=== PATIENT | female | born 1950 | race Caucasian/White ===

== ENCOUNTER 2017-03-22 09:38 | Emergency (ER) | payer OTHER ==
[~2017-03-22] VITALS: Ht 157.5 cm; Wt 113.4 kg
[~2017-03-22 09:38] MED LIST: ASPIR 8181 MG PO; ASPIRIN EC81 M1 PO; ATENOLOL 100MG100 MG PO; BENZONATATE100 MG PO; BIO CLEANSE PO; CENTRUM SILVER1 EAC4 PO; CHLORTHALIDONE25 MG PO; CLARITIN10 MG PO; COLACE100 MG PO; COREG6.25 MG PO; LIPITOR 20 MG T20 M1 PO; LIPITOR10 MG PO; LISINOPRIL20 MG PO; LISINOPRIL40 MG PO; MUCINEX TA600 MG/TA2 PO; NORVASC10 MG PO; NORVASC5 MG PO; PEPCID20 MG PO; PLAVIX 75 MG TA75 M1 PO; PREDNISONE 10 M10 MG PO; PREDNISONE 20 M20 MG PO; PRILOSEC 20 MG20 MG PO; PROAIR HFA8.5 GM INH; PROBIOTIC1 EAC3 PO; PROTONIX40 M1 PO; SYSTANE 0.3-0.1 EACH OPHTHALMIC; TYLENOL325 MG PO; XANAX 0.25 MG0.25 MG PO; ZESTORETIC 20-1 EAC1 PO; ZPAK PO
[2017-03-22 10:43] LABS: BASOPHILS 1.2 % (0.0-2.0); EOSINOPHILS 5.4 % (0.0-3.0); HEMATOCRIT 45.3 % (37.0-47.0); HEMOGLOBIN 15.3 gm/dL (12.0-15.0); LYMPHOCYTES 32.7 % (24.0-44.0); MCH 28.6 pg (26.0-34.0); MCHC 33.9 g/dL (28.0-37.0); MCV 84.4 fL (80.0-100.0); MONOCYTES 8.5 % (1.0-8.0); PLATELET COUNT 278 thou/uL (150-400); POLYS 52.2 % (36.0-66.0); RBC 5.36 mil/uL (4.20-5.00); RDW 13.9 % (10.5-14.5); WBC 9.5 thou/uL (4.0-11.0)
[2017-03-22 10:44] LABS: URINE BILIRUBIN NEGATIVE (Negative); URINE BLOOD NEGATIVE (Negative); URINE CLARITY CLEAR; URINE COLOR YELLOW; URINE GLUCOSE-RANDOM* NEGATIVE (Negative); URINE KETONES NEGATIVE (Negative); URINE LEUKOCYTES 1+ (Negative); URINE NITRITE NEGATIVE (Negative); URINE PROTEIN (DIPSTICK) NEGATIVE (Negative); URINE SPECIFIC GRAVITY <= 1.005 (1.005-1.035); URINE UROBILINOGEN 0.2 E.U./dl (0.2-1.0)
[2017-03-22 10:51] LABS: ANION GAP 7 mmol/L (7-16); BUN 19 mg/dL (7-18); CALCIUM 9.2 mg/dL (8.5-10.1); CHLORIDE 99 mmol/L (98-107); CO2 29 mmol/L (21-32); GLUCOSE 132 mg/dL (74-106); POTASSIUM 4.5 mmol/L (3.5-5.1); SODIUM 135 mmol/L (136-145)
[2017-03-22 10:53] LABS: CASTS None Seen /LPF (None Seen); SQUAMOUS 0-3 Few /LPF (0-3); URINE WBC 6-15 Few /HPF (0-5)
[2017-03-22 10:54] LABS: BACTERIA None Seen /HPF (None Seen); CRYSTALS None Seen /LPF (None Seen); URINE RBC None Seen /HPF (0-2)
[2017-03-22 10:55] LABS: MUCUS None Seen strn/LPF (None Seen)
[2017-03-22 11:00] LABS: ALBUMIN 3.5 g/dL (3.4-5.0); SGOT 35 U/L (15-37); SGPT 51 U/L (30-65); TOTAL BILIRUBIN 0.5 mg/dL (<0.1-1.0); TOTAL PROTEIN 7.2 g/dL (6.4-8.2); TROPONIN-I < 0.04 ng/mL (<0.06)
[2017-03-22] MEDS ORDERED: MACROBID 100 M100 M1 PO (12:08)
[2017-03-22] MEDS ORDERED: PREDNISONE 20 M20 MG PO (12:08)
[2017-03-22] MEDS ORDERED: VENTOLIN HFA 1818 GM INH ×3 (12:08→12:14)
[2017-03-22] MEDS ORDERED: ONDANSETRON HCL4 M2 PO (12:08)
[2017-03-22 13:49] VITALS: BP 132/71
== END 2017-03-22 13:51 | disposition home or self-care (01) ==
LOC: ER 09:38
PROVIDERS: Physician Assistant
DX: N39.0 Urinary tract infection, site not specified (principal); J20.8 Acute bronchitis due to other specified organisms; I10 Essential (primary) hypertension; E78.00 Pure hypercholesterolemia, unspecified; K21.9 Gastro-esophageal reflux disease without esophagitis; F41.9 Anxiety disorder, unspecified; Z86.73 Personal history of transient ischemic attack (TIA), and cerebral infarction without residual deficits; Z88.1 Allergy status to other antibiotic agents; Z88.0 Allergy status to penicillin; Z88.8 Allergy status to other drugs, medicaments and biological substances; Z87.891 Personal history of nicotine dependence

== ENCOUNTER 2017-05-30 11:22 | Inpatient (IN) | payer OTHER ==
[~2017-05-30] VITALS: Ht 157.5 cm; Wt 112.6 kg
--- NOTE | ~2017-05-30 | 2DMMODE ---
[facility] [address] [place] [address] 2 D/M-MODE ECHOCARDIOGRAM Name: DALJIT ARRIETA Room #: 201-P ADM IN M.R.#: [id number] Admission: 05/30/17 Attend Phys: Zechariah Vidal MD Discharge: Date of : 46 Date of Service: 06/02/17 1542 Report #: [id number] THIS REPORT FOR: //name// ADDENDUM APPROVED REPORT Study performed: 06/02/2017 13:28:14 EXAM: Comprehensive 2D, Doppler, and color-flow Echocardiogram Patient Location: Bedside Room #: 201 Status: routine BSA: 2.14 HR: 66 bpm BP: 140/59 mmHg Other Information Study Quality: Fair Indications Dyspnea CAD Hypertension/HDD 2D Dimensions LVOT Diam: 18.36 (18-24mm) Volumes Left Atrial Volume (Systole) Single Plane 4CH: 62.49 mL Single Plane 2CH: 42.80 mL LA ESV Index: 28.00 mL/m2 Aortic Valve AoV Peak Jean-Paul.: 3.05 m/s AO Peak Gr.: 37.28 mmHg LVOT Max P.13 mmHg AO Mean Gr.: 24.54 mmHg LVOT Mean P.13 mmHg AO V2 Mean: 2.36 m/s LVOT Max V: 0.98 m/s AO V2 VTI: 84.87 cm LVOT Mean V: 0.69 m/s NIKIA (VTI): 0.88 cm2 LVOT V1 VTI: 28.15 cm NIKIA Vmax: 0.85 cm2 SV (LVOT): 74.47 mL Mitral Valve E/A Ratio: 1.4 MV Decel. Time: 190.01 ms MV E Max Jean-Paul.: 1.35 m/s [facility] [place] [address] 2 D/M-MODE ECHOCARDIOGRAM Name: DALJIT ARRIETA EMMA Room #: 201-P [facility] IN M.R.#: [id number] Admission: 05/30/17 Attend Phys: Zechariah Vidal MD Discharge: Date of : 46 Date of Service: 06/02/17 1542 Report #: [id number] MV A Jean-Paul.: 0.97 m/s MV PHT: 55.10 ms IVRT: 59.98 ms Pulmonary Valve PV Peak Jean-Paul.: 1.27 m/s PV Peak Gr.: 6.44 mmHg Pulmonary Vein P Vein S: 0.87 m/s P Vein A: 0.21 m/s P Vein D: 0.79 m/s P Vein A Dur.: 92.3 msec P Vein S/D Ratio: 1.10 Tricuspid Valve TR Peak Jean-Paul.: 3.16 m/s TR Peak Gr.: 40.05 mmHg PA Pressure: 40.00 mmHg Left Ventricle The left ventricle is normal size. poor endocardial definition, possible inferior hypokinesis Mild concentric left ventricular hypertrophy. The left ventricular systolic function is normal. The left ventricular ejection fraction is within the normal range. LVEF is 50-55% Transmitral Doppler flow pattern suggests impaired LV relaxation. Right Ventricle The right ventricle is normal size. The right ventricular systolic function is normal. Atria Left atrium is at the upper limits of normal. The right atrium size is normal. Aortic Valve Aortic valve is calcified. Trace aortic regurgitation. Moderate aortic stenosis Mitral Valve The mitral valve is normal in structure. Mild mitral regurgitation. No evidence of mitral valve stenosis. Tricuspid Valve The tricuspid valve is normal in structure. There is mild tricuspid regurgitation. Estimated PAP 40 mmHg plus the right atrial pressure. There is moderate pulmonary hypertension. [address] [address] 2 D/M-MODE ECHOCARDIOGRAM Name: DALJIT ARRIETA Room #: 201-P [facility] IN ..#: [id number] Admission: 05/30/17 Attend Phys: Zechariah Vidal MD Discharge: Date of : 46 Date of Service: 06/02/17 1542 Report #: [id number] Pulmonic Valve The pulmonary valve is normal in structure. There is no pulmonic valvular regurgitation. Great Vessels The aortic root is normal in size. IVC is not well visualized. Pericardium There is no pericardial effusion. <Conclusion> LVEF is 50-55% poor endocardial definition, possible inferior hypokinesis The aortic valve is sclerotic Moderate aortic stenosis Transmitral Doppler flow pattern suggests impaired LV relaxation. <ELECTRONICALLY SIGNED> By: Walter Izquierdo MD, FACC 06/02/17 154 154 154 Walter Izquierdo MD, FACC /INF
--- NOTE | ~2017-05-30 | HC ---
[facility] [place] [address] CONSULTATION Name: DALJIT ARRIETA Room #: 201-P ADM IN M.R.#: [id number] Admission: 05/30/17 Attend Phys: Zechariah Vidal MD Discharge: Date of : 46 Report #: [id number] THIS REPORT FOR: //name// CC: Juan Ramon Vidal INFECTIOUS DISEASE CONSULTATION REASON FOR CONSULTATION: I was asked to evaluate concerning bacteremia in the setting of pneumonia and influenza. HISTORY OF PRESENT ILLNESS: The patient is a 67-year-old who presents to the Emergency Room on 05/30/2017 with shortness of breath and cough that had progressed over 1 week time period. She has had myalgias, arthralgias, chills and cough productive of purulent sputum. No hemoptysis. No pleuritic chest pain. No prior history of pneumonia. Does have a history of coronary artery disease, status post coronary bypass grafting. No travel. Lives alone. No animal exposure. PAST MEDICAL HISTORY: Coronary artery disease, hypertension, coronary bypass grafting, peripheral vascular disease, left carotid endarterectomy, hyperlipidemia, TIA, IA, gastroesophageal reflux, dentures, anxiety, back pain, hyperlipidemia, cataract surgery. ALLERGIES: AMOXICILLIN WITH ANAPHYLACTIC SHOCK, LEVAQUIN, HYDROCODONE. MEDICATIONS: As noted on her MAR including aspirin, Coreg, Norvasc, Zestoretic, Crestor, multivitamin, Mucinex. FAMILY HISTORY: Noncontributory. SOCIAL HISTORY: She is a smoker of cigarettes in the past, minimal alcohol intake. REVIEW OF SYSTEMS: Denies any rash, arthritis, GI or complaints. PHYSICAL EXAMINATION: VITAL SIGNS: Afebrile and hemodynamically stable. GENERAL: Alert and cooperative on 2 liters of oxygen per nasal cannula. Moderate obesity. SKIN: Unremarkable. HEENT: Unremarkable with dentures. NECK: Supple, no adenopathy. LUNGS: Coarse breath sounds posterior mid to lower chest bilaterally. No consolidation, no rub. HEART: Regular without murmur. ABDOMEN: Soft, nontender, no hepatosplenomegaly or mass. [facility] [address] [place] [address] CONSULTATION Name: DALJIT ARRIETA Room #: 201-P [facility] IN M.R.#: [id number] Admission: 05/30/17 Attend Phys: Zechariah Vidal MD Discharge: Date of : 46 Report #: [id number] EXTREMITIES: Unremarkable. LABORATORY STUDIES: Blood cultures from 05/30/2017, 1 of 2 showing diphtheroids. Sputum culture, normal riccardo. Urine for legionella and strep pneumonia antigen negative. Repeat blood cultures on 06/02/2017 negative to date. Lower extremity venous Doppler negative for DVT. Chest x-ray, more consistent with edema with bilateral infiltrates, more prominent in the perihilar region. CT scan of the chest, no pulmonary embolism with widespread patchy nodular and ground glass pulmonary opacities consistent with multifocal pneumonia. Sodium 136, potassium 4.8, bicarbonate 30, creatinine 1. Liver function test normal with alkaline phosphatase of 118. BNP 2683. Hemoglobin 13.3, WBC 23.6, platelet count 295,000. Differential: 77% neutrophils, 6% bands, 6% atypical lymphocytes. MRSA screen negative. Hemoglobin A1c 6.3. Nasal swab positive for influenza B. IMPRESSION: 1. A 67-year-old with underlying coronary artery disease, presents with influenza B and bilateral pulmonary infiltrates. No secondary bacterial organisms have been identified. Her sputum culture shows normal riccardo. 2. Blood culture with diphtheroids, most consistent with contamination. No treatment necessary for this. 3. Leukocytosis, likely related to her corticosteroids. RECOMMENDATIONS: Continue with Tamiflu as ordered. We will continue with ceftriaxone for another 24 hours. Anticipate switching to oral antibiotic therapy with continued improvement tomorrow. <ELECTRONICALLY SIGNED> By: Jeferson Chamberlain MD 06/03/17 1949 1030 1335 Jeferson Chamberlain MD /nt
--- NOTE | ~2017-05-30 | EKG ---
[address] [address] ELECTROCARDIOGRAM REPORT Name: MEENAKSHIDALJIT EMMA Room #: 201-P ADM IN M.R.#: [id number] Admission: 05/30/17 Attend Phys: Zechariah Vidal MD Discharge: Date of : 46 Report #: [id number] THIS REPORT FOR: //name// [facility] Test Date: 2017-06-04 Test Time: 13:37:12 Pat Name: DALJIT ARRIETA Department: Room: 201 P Gender: F Junior Software Engineer: Peter FOLEY : 1950 Requested By: Zechariah Vidal Order Number: [id number] : John Burgess Measurements Intervals [place] Rate: 78 P: 70 AK: 157 QRS: 39 QRSD: 101 T: 161 QT: 376 QTc: 429 Interpretive Statements Sinus rhythm Abnormal inferior Q waves Minimal ST elevation, anterior leads Compared to ECG 05/30/2017 11:44:04 Electronically Signed On 06-04-2017 14:05:47 CDT by John Burgess [email or web address] <ELECTRONICALLY SIGNED> By: John Burgess MD 06/04/17 1407 1337 1337 John Burgess MD /EPI
--- NOTE | ~2017-05-30 | EKG ---
[address] [address] ELECTROCARDIOGRAM REPORT Name: DALJIT ARRIETA Room #: 201-P ADM IN M.R.#: [id number] Admission: 05/30/17 Attend Phys: Zechariah Vidal MD Discharge: Date of : 46 Report #: [id number] THIS REPORT FOR: //name// [facility] Test Date: 2017-06-06 Test Time: 12:36:06 Pat Name: DALJIT ARRIETA Department: Room: 201 P Gender: F Laborer Heading: JENNIFER : 1950 Requested By: Zechariah Vidal Order Number: [id number] MD: John Burgess Measurements Intervals [place] Rate: 55 P: 53 IA: 161 QRS: 29 QRSD: 89 T: 146 QT: 441 QTc: 422 Interpretive Statements Sinus rhythm Minimal ST elevation, anterior leads Compared to ECG 06/04/2017 13:37:12 Early repolarization now present Electronically Signed On 06-06-2017 19:59:03 CDT by John Burgess [email or web address] <ELECTRONICALLY SIGNED> By: John Burgess MD 06/06/171958 123 35 John Burgess MD /ASHLEY
--- NOTE | ~2017-05-30 | HC ---
[facility] [place] [address] CONSULTATION Name: DALJIT ARRIETA Room #: 201-P ADM IN M.R.#: [id number] Admission: 05/30/17 Attend Phys: Zechariah Vidal MD Discharge: Date of : 46 Report #: [id number] THIS REPORT FOR: //name// CC: Juan Ramon Vidal DATE OF SERVICE: 06/04/2017 TYPE OF REPORT: Cardiology consultation. PRIMARY CARE SERVICE: Juan Ramon Moore M.D. HISTORY OF PRESENT ILLNESS: The patient is a 67-year-old single white female who I was asked to see in the hospital today after she complained of chest pain. The patient has a long history of hypertension, smoking and hyperlipidemia. She actually presented back in 2013. She had a long history of epigastric pain. She was actually catheterized at [facility] and was found to have an occluded left iliac artery. 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 She was found to have normal left ventricular function and mild aortic stenosis. The patient had a previous history of left carotid endarterectomy at the [facility] in 1997. In 2005, she underwent stenting of the carotid artery. The patient was admitted to [facility] and underwent quadruple coronary artery bypass surgery by Dr. Adarsh Pan in October 2013. She has actually done well since that time. The patient has been followed by my partner, Dr. Padilla. She was actually admitted here to [facility] last December with chest pain. She was seen at that time by Dr. Izquierdo. Workup included an echocardiogram showed evidence of mild aortic stenosis. 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 She was admitted here to [facility] 5 days ago with a cough, fever and shortness of breath. She is felt to have bronchitis. Today, she is lying in bed. She felt a tightness in her epigastrium. I was asked to see her for further evaluation and treatment. She denies any exertional chest tightness, palpitation, syncope, edema and leg pain. PAST MEDICAL HISTORY: Otherwise significant for cataract surgery, hypertension and hyperlipidemia. MEDICATIONS: Include amlodipine, lisinopril, Crestor and aspirin. ALLERGIES: She has an allergy to PENICILLIN. FAMILY HISTORY: Positive for heart disease. [facility] [address] [place] [address] CONSULTATION Name: DALJIT ARRIETA Room #: [address] [place] [address] [place] ..#: [id number] Admission: 05/30/17 Attend Phys: Zechariah Vidal MD Discharge: Date of : 48 Report #: [id number] SOCIAL HISTORY: She is , lives in [place] by herself. She has a desk job. Quit smoking years ago. No alcohol abuse. REVIEW OF SYSTEMS: She has had a history of TIA. No history of asthma, peptic ulcer disease, liver disease, kidney disease, cancer, psychiatric illness or chronic skin condition. PHYSICAL EXAMINATION: GENERAL: She is overweight, being 5 feet 5 inches and weighing 250 pounds. VITAL SIGNS: Blood pressure of 170/70, pulse 70 and she is afebrile. HEENT: She was anicteric. Conjunctivae pink. Mucous membranes moist. NECK: Veins nondistended. CHEST: No coarse breath sounds. CARDIOVASCULAR: Regular rate and rhythm. Grade 3 systolic ejection murmur. ABDOMEN: Obese, soft and nontender. EXTREMITIES: Had no pitting edema. Dorsalis pedis pulse cannot be palpated. SKIN: Cool and dry. RADIOLOGICAL DATA: Her ECG was done earlier today but unfortunately, it is not in her chart. Her workup, she had portable chest x-ray on admission that showed chronic interstitial prominence and no pneumonia. Chest x-ray done today shows cardiomegaly, otherwise clear lung beverly. Venous duplex scan of her legs done 3 days ago showed no DVT. CT scan of the chest using the PE protocol on admission showed no pulmonary embolus and patchy infiltrates consistent with pneumonia. She had a nuclear stress test done last December that showed a small anterolateral defect likely artifact secondary to breast attenuation. LABORATORY DATA: Her lab work, sodium 139, potassium 5.1, BUN 23 and creatinine 0.9. Liver function studies are normal. Glucose is 211. Liver function studies are normal. Troponin 0.04. White blood cell count 24,000 and hemoglobin 13.9. IMPRESSION AND RECOMMENDATIONS: 1. Epigastric pain. Suspect noncardiac. Recommend no further cardiac workup. I would continue aspirin a day. 2. Hypertension. The patient has been on a calcium noe and angiotensin-converting enzyme inhibitor. I would recommend restarting her beta noe. 3. Hyperlipidemia. The patient is on a statin drug. 4. Previous bilateral carotid endarterectomy, asymptomatic. 5. Peripheral arterial disease. No symptoms of claudication. 6. Morbid obesity. 7. Bronchitis. 8. Aortic stenosis. The patient had a repeat echocardiogram done this week that showed ejection fraction 50%. There was evidence of aortic stenosis with a [facility] [address] [place] [address] CONSULTATION Name: DALJIT ARRIETA Room #: 201-P ADM IN M.R.#: [id number] Admission: 05/30/17 Attend Phys: Zechariah Vidal MD Discharge: Date of : 46 Report #: [id number] peak gradient across the aortic valve of 37 mmHg consistent with at least moderate aortic stenosis. <ELECTRONICALLY SIGNED> By: Juan Ramon Valiente MD, FACC 06/05/17 1219 1808 2109 Juan Ramon Valiente MD, FACC /nt
--- NOTE | ~2017-05-30 | HC ---
[facility] [place] [address] CONSULTATION Name: DALJIT ARRIETA Room #: 201-P [facility] IN M.R.#: [id number] Admission: 05/30/17 Attend Phys: Zechariah Vidal MD Discharge: 06/07/17 Date of : 46 Report #: [id number] THIS REPORT FOR: //name// CC: Juan Ramon Vidal DATE OF SERVICE: 06/01/2017 REASON FOR CONSULTATION: Hypoxemic respiratory failure. IMPRESSION: 1. Hypoxemic respiratory failure. 2. Bilateral pulmonary infiltrates, likely secondary to influenza but bacterial pneumonia may be cause. 3. Leukocytosis. 4. History of tobacco use. 5. Hypertension. PLAN: Agree with corticosteroids, Rocephin, azithromycin, DuoNeb treatment and chest x-ray. Will be monitored because of leukocytosis and we will repeat in a.m. Continue DVT and ulcer prophylaxis per primary. HISTORY OF PRESENT ILLNESS: This is a very pleasant 67-year-old female, started to have myalgias and arthralgias last week, then developed cough and sputum production. Fever and chills noted. No vomiting. No abdominal pain or loose stools. ALLERGIES: To AMOXICILLIN, LEVAQUIN and HYDROCODONE. PAST SURGICAL HISTORY: Include endarterectomy, left carotid stent, left eye implant, CABG and oral surgery. SOCIAL HISTORY: Negative drugs of abuse, positive ETOH and positive tobacco in the past. REVIEW OF SYSTEMS: Positive history of anxiety, reflux, DC, TIA in 1997, back pain, sciatica, peripheral vascular disease and hypertension. HOME MEDICATIONS: Included aspirin, Coreg, amlodipine, Zestoretic and Crestor. PHYSICAL EXAMINATION: EYES: Negative icterus. ENT AND NECK: Trachea midline. Posterior pharynx. No thrush. LUNGS: Showed wheeze bilateral. HEART: Regular. ABDOMEN: Bowel sounds present. [facility] [address] [place] [address] CONSULTATION Name: DALJIT ARRIETA Room #: 201-P [facility] IN .R.#: [id number] Admission: 05/30/17 Attend Phys: Zechariah Vidal MD Discharge: 06/07/17 Date of : 46 Report #: [id number] EXTREMITIES: Showed no calf tenderness. LABORATORY DATA: CT chest was very interesting and reviewed with Radiology showing right hilar lymph node and bilateral patchy nodular. Sputum will be done. Because of positive D-dimer, venous Doppler of lower extremities were done. <ELECTRONICALLY SIGNED> By: Mary Pierre MD 06/09/17 2316 18 9095 Mary Pierre MD /nt
--- NOTE | ~2017-05-30 | EKG ---
[address] [place] [address] ELECTROCARDIOGRAM REPORT Name: MEENAKSHIDALJIT CARTER [id number] Admission: 05/30/17 Attend Phys: Discharge: Date of : 46 Report #: [id number] THIS REPORT FOR: //name// [facility] ED Test Date: 2017-05-30 Test Time: 11:44:04 Pat Name: DALJIT ARRIETA Department: Room: Gender: F Tong Setter: Aurelio CHAMBERLAIN : 1950 Requested By: Martha Suazo Order Number: [id number] MD: Lawrence Juarez Measurements Intervals [place] Rate: 89 P: 63 [place]: 170 QRS: 30 QRSD: 95 T: 138 QT: 370 QTc: 451 Interpretive Statements Sinus rhythm LVH with secondary repolarization abnormality Abnormal inferior Q waves Compared to ECG 12/30/2016 13:08:57 No significant change was found Electronically Signed On 05-30-2017 13:08:10 CDT by Lawrence Juarez [email or web address] <ELECTRONICALLY SIGNED> By: Lawrence Juarez MD, [facility] 05/30/17 1308 1144 1144 Lawrence Juarez MD, FACC /EPI
--- NOTE | ~2017-05-30 | CNG ---
[facility] [place] [address] CYTO-NONGYN REPORT PROCEDURE Name: DALJIT ARRIETA Room #: 201-P ADM IN M.R.#: [id number] Admission: 05/30/17 Date of : 46 Discharge: Report #: [id number] Path Case #: [id number] CYTOPATHOLOGY REPORT COLLECTION DATE: 06/01/2017 RECEIVED DATE: 06/01/2017 SUBMITTING PHYS: Dr. Mary Pierre OTHER PHYS: Jack Loera Dr., Dr. CLINICAL HISTORY: None provided SPECIMEN(S) RECEIVED: A.Sputum * * * * * * * * * * * * FINAL DIAGNOSIS: A. Sputum: - No malignant epithelial cells identified. Occasional pulmonary macrophages, normal squamous cells and partially obscuring acute and chronic inflammatory cells are present in a background of debris. PATHOLOGIST: Justine Abarca M.D. REPORT ELECTRONICALLY SIGNED BY: Justine Abarca M.D. DATE/TIME: 06/02/2017 11:33 * * * * * * * * * * * * GROSS PATHOLOGY: A. Sputum: The specimen is submitted unfixed, labeled "Daljit Arrieta". Received by the Cytology Department is five mL of cloudy colorless fluid. One ThinPrep slide was prepared. ([email or web address]) BEARING GRINDER(S): Elmer J Estefani, CT(ASCP) INITIAL CPT CODE(S): A; 66673 Professional services performed by [facility] at [facility] [address], [place] [address] Technical services performed by [facility] at [address] [place] [address], [address], [place] [address]. [facility] [address] [place] [address] CYTO-NONGYN REPORT PROCEDURE Name: DALJIT ARRIETA Room #: 201-P ADM IN M.R.#: [id number] Admission: 05/30/17 Date of : 46 Discharge: Report #: [id number] Path Case #: [id number] [address] [facility], [address] [place] [address] PHONE: [phone] DIRECTOR: Manjit Dwyer M.D. * * * END OF REPORT * * *
[~2017-05-30 11:22] MED LIST changes: +MACROBID 100 M100 M1 PO; +ONDANSETRON HCL4 M2 PO; +VENTOLIN HFA 1818 GM INH
[2017-05-30 11:30] VITALS: BP 208/72
[2017-05-30 11:54] LABS: ABSOLUTE NEUTROPHILS 6.3 thou/uL (1.4-8.2); BASOPHILS 0.6 % (0.0-2.0); EOSINOPHILS 3.3 % (0.0-3.0); HEMATOCRIT 40.6 % (37.0-47.0); LYMPHOCYTES 23.9 % (24.0-44.0); MCH 28.5 pg (26.0-34.0); MCHC 34.5 g/dL (28.0-37.0); MCV 82.4 fL (80.0-100.0); MONOCYTES 11.1 % (1.0-8.0); PLATELET COUNT 224 thou/uL (150-400); POLYS 61.1 % (36.0-66.0); RBC 4.92 mil/uL (4.20-5.00); RDW 14.7 % (10.5-14.5); WBC 10.4 thou/uL (4.0-11.0)
[2017-05-30 11:59] LABS: BE(vivo) -0.4 mmol/L (-2 to +3); PCO2 43.8 mmHg (35.0-45.0); PO2 68.6 mmHg (80.0-100.0); pH 7.375 (7.360-7.450); sO2 93.3 % (92.0-98.0)
[2017-05-30 12:03] LABS: CALCIUM 9.1 mg/dL (8.5-10.1); CREATININE 1.1 mg/dL (0.6-1.0); POTASSIUM 3.9 mmol/L (3.5-5.1)
[2017-05-30] MEDS ORDERED: CRESTOR20 MG PO (13:09)
[2017-05-30] MEDS ORDERED: UNICOMPLEX M TA1 TA1 PO (13:10)
[2017-05-30] MEDS ORDERED: MUCINEX1200 MG PO (13:10)
[2017-05-30 13:39] VITALS: BP 166/66
[2017-05-30 16:23] VITALS: BP 145/72
[2017-05-30 19:15] VITALS: BP 150/58
[2017-05-30 23:50] VITALS: BP 137/64
[2017-05-31 03:30] VITALS: BP 145/55
[2017-05-31 03:35] LABS: HEMATOCRIT 41.5 % (37.0-47.0); HEMOGLOBIN 14.3 gm/dL (12.0-15.0); MCH 28.6 pg (26.0-34.0); MCHC 34.5 g/dL (28.0-37.0); MCV 82.8 fL (80.0-100.0); RBC 5.02 mil/uL (4.20-5.00); RDW 14.5 % (10.5-14.5); WBC 11.7 thou/uL (4.0-11.0)
[2017-05-31 03:53] LABS: ALBUMIN 3.1 g/dL (3.4-5.0); POTASSIUM 4.4 mmol/L (3.5-5.1); TOTAL BILIRUBIN 0.2 mg/dL (<0.1-1.0); TOTAL PROTEIN 7.1 g/dL (6.4-8.2)
[2017-05-31 07:15] VITALS: BP 151/61
[2017-05-31 11:51] VITALS: BP 150/63
[2017-05-31 15:34] VITALS: BP 146/58
[2017-05-31 20:45] VITALS: BP 150/63
[2017-06-01 00:09] LABS: GLYCOHEMOGLOBIN (HGB A1C) 6.3 % (4.8-5.6)
[2017-06-01 00:12] VITALS: BP 129/55
[2017-06-01 04:55] VITALS: BP 146/57
[2017-06-01 05:11] LABS: HEMATOCRIT 40.1 % (37.0-47.0); HEMOGLOBIN 13.3 gm/dL (12.0-15.0); MCH 27.8 pg (26.0-34.0); MCHC 33.1 g/dL (28.0-37.0); MCV 83.8 fL (80.0-100.0); PLATELET COUNT 279 thou/uL (150-400); RBC 4.78 mil/uL (4.20-5.00); RDW 14.4 % (10.5-14.5)
[2017-06-01 05:20] LABS: CALCIUM 8.6 mg/dL (8.5-10.1); POTASSIUM 4.8 mmol/L (3.5-5.1)
[2017-06-01 05:27] LABS: WBC 26.8 thou/uL (4.0-11.0)
[2017-06-01 07:42] LABS: ABSOLUTE NEUTROPHILS 24.9 thou/uL (1.4-8.2)
[2017-06-01 07:43] LABS: ANISOCYTOSIS SLIGHT; LARGE PLATELETS OCCASIONAL
[2017-06-01 08:20] VITALS: BP 144/64
[2017-06-01 12:56] VITALS: BP 140/65
[2017-06-01 14:45] VITALS: BP 139/53
[2017-06-01 19:31] VITALS: BP 139/47
[2017-06-02 04:20] VITALS: BP 152/55
[2017-06-02 04:22] LABS: HEMATOCRIT 40.6 % (37.0-47.0); HEMOGLOBIN 13.3 gm/dL (12.0-15.0); MCH 27.6 pg (26.0-34.0); MCHC 32.6 g/dL (28.0-37.0); MCV 84.6 fL (80.0-100.0); PLATELET COUNT 295 thou/uL (150-400); RBC 4.81 mil/uL (4.20-5.00); RDW 14.7 % (10.5-14.5); WBC 23.6 thou/uL (4.0-11.0)
[2017-06-02 04:46] LABS: POTASSIUM 4.8 mmol/L (3.5-5.1)
[2017-06-02 05:40] LABS: ABSOLUTE NEUTROPHILS 19.6 thou/uL (1.4-8.2); ATYPICAL LYMPHS 6 %
[2017-06-02 07:46] VITALS: BP 157/59
[2017-06-02 11:19] VITALS: BP 140/59
[2017-06-02 16:25] VITALS: BP 148/44
[2017-06-02 19:26] VITALS: BP 149/52
[2017-06-03 00:46] VITALS: BP 165/55
[2017-06-03 05:48] VITALS: BP 178/60
[2017-06-03 08:09] VITALS: BP 172/62
[2017-06-03 15:28] VITALS: BP 158/63
[2017-06-03 19:13] VITALS: BP 172/64
[2017-06-04 03:14] LABS: HEMATOCRIT 41.9 % (37.0-47.0); HEMOGLOBIN 13.9 gm/dL (12.0-15.0); MCH 27.8 pg (26.0-34.0); MCHC 33.2 g/dL (28.0-37.0); MCV 83.7 fL (80.0-100.0); PLATELET COUNT 330 thou/uL (150-400); RBC 5.01 mil/uL (4.20-5.00); RDW 14.6 % (10.5-14.5)
[2017-06-04 03:21] LABS: CALCIUM 9.7 mg/dL (8.5-10.1); CREATININE 0.9 mg/dL (0.6-1.0); POTASSIUM 5.1 mmol/L (3.5-5.1)
[2017-06-04 04:22] VITALS: BP 171/67
[2017-06-04 05:48] LABS: ATYPICAL LYMPHS 1 %; METAMYELOCYTES 3 %; MYELOCYTES 1 %; NUCLEATED RBCS 1 /100WBC
[2017-06-04 07:58] VITALS: BP 206/69
[2017-06-04 12:11] VITALS: BP 190/100
[2017-06-04 14:17] LABS: BE(vivo) 6.1 mmol/L (-2 to +3); HCO3 29.9 mmol/L (22.0-26.0); PCO2 40.2 mmHg (35.0-45.0); PO2 67.9 mmHg (80.0-100.0); sO2 94.8 % (92.0-98.0)
[2017-06-04 15:51] VITALS: BP 190/71
[2017-06-04 19:35] VITALS: BP 160/71
[2017-06-05] VITALS (8 sets, daily range): BP systolic 139–190; BP diastolic 37–78
[2017-06-05 04:06] LABS: HEMATOCRIT 42.9 % (37.0-47.0); MCH 27.5 pg (26.0-34.0); MCHC 32.6 g/dL (28.0-37.0); MCV 84.2 fL (80.0-100.0); PLATELET COUNT 319 thou/uL (150-400); RBC 5.09 mil/uL (4.20-5.00); RDW 14.5 % (10.5-14.5); WBC 21.4 thou/uL (4.0-11.0)
[2017-06-05 04:11] LABS: CALCIUM 9.4 mg/dL (8.5-10.1); CREATININE 0.9 mg/dL (0.6-1.0); POTASSIUM 4.7 mmol/L (3.5-5.1)
[2017-06-05 05:00] LABS: ABSOLUTE NEUTROPHILS 16.9 thou/uL (1.4-8.2); ATYPICAL LYMPHS 1 %; MYELOCYTES 3 %
[2017-06-06] VITALS (8 sets, daily range): BP systolic 11–140; BP diastolic 38–80
[2017-06-06 03:11] LABS: HEMOGLOBIN 14.7 gm/dL (12.0-15.0)
[2017-06-06 03:12] LABS: HEMATOCRIT 44.3 % (37.0-47.0); MCHC 33.2 g/dL (28.0-37.0); MCV 84.3 fL (80.0-100.0); PLATELET COUNT 358 thou/uL (150-400); RBC 5.25 mil/uL (4.20-5.00); RDW 14.7 % (10.5-14.5)
[2017-06-06 03:27] LABS: CALCIUM 9.5 mg/dL (8.5-10.1); POTASSIUM 4.1 mmol/L (3.5-5.1)
[2017-06-06 04:40] LABS: ABSOLUTE NEUTROPHILS 17.5 thou/uL (1.4-8.2); ANISOCYTOSIS SLIGHT; ATYPICAL LYMPHS 1 %
[2017-06-07 05:01] VITALS: BP 133/43
[2017-06-07 05:02] VITALS: BP 144/60; BP 180/55
[2017-06-07 05:21] LABS: HEMATOCRIT 43.9 % (37.0-47.0); HEMOGLOBIN 14.5 gm/dL (12.0-15.0); MCH 27.8 pg (26.0-34.0); MCHC 33.2 g/dL (28.0-37.0); MCV 83.7 fL (80.0-100.0); PLATELET COUNT 299 thou/uL (150-400); RBC 5.24 mil/uL (4.20-5.00); RDW 15.1 % (10.5-14.5); WBC 23.8 thou/uL (4.0-11.0)
[2017-06-07 05:24] LABS: CALCIUM 8.9 mg/dL (8.5-10.1); POTASSIUM 4.1 mmol/L (3.5-5.1)
[2017-06-07 07:17] VITALS: BP 92/48
[2017-06-07 07:27] VITALS: BP 155/52
[2017-06-07 08:39] LABS: ABSOLUTE NEUTROPHILS 14.3 thou/uL (1.4-8.2); PLATELET ESTIMATE NORMAL
[2017-06-07 11:48] VITALS: BP 136/55
[2017-06-07] MEDS ORDERED: CEFDINIR300 MG PO (11:58)
[2017-06-07] MEDS ORDERED: PREDNISONE 5 MG5 M1 PO (11:58)
[2017-06-07] MEDS ORDERED: MUCINEX1200 MG PO (11:58)
[2017-06-07] MEDS ORDERED: COREG6.25 MG PO (11:58)
[2017-06-07] MEDS ORDERED: NORVASC5 MG PO (11:58)
[2017-06-07] MEDS ORDERED: VENTOLIN HFA 1818 GM INH (12:39)
[2017-06-07 14:18] VITALS: BP 136/55
== END 2017-06-07 15:20 | disposition home or self-care (01) | DRG 871 ==
LOC: ER 11:22 → 2N 13:13 → EROBS 13:13 → 2N 15:14 → ENTRNSPT 06-07 15:12 → EDTRNSPTSTS 06-07 15:15 → 2N 06-07 15:20
PROVIDERS: Emergency Medicine; Hospitalist; Internal Medicine Cardiovascular Disease; Internal Medicine Pulmonary Disease; Nurse Practitioner Acute Care
PROC: B24BZZ4 Ultrasonography of Heart with Aorta, Transesophageal (ICD-10-PCS; principal; 2017-06-02)
DX: A41.9 Sepsis, unspecified organism (principal); J96.01 Acute respiratory failure with hypoxia; J10.08 Influenza due to other identified influenza virus with other specified pneumonia; Z68.42 Body mass index [BMI] 45.0-49.9, adult; I50.32 Chronic diastolic (congestive) heart failure; K21.9 Gastro-esophageal reflux disease without esophagitis; F41.9 Anxiety disorder, unspecified; E66.01 Morbid (severe) obesity due to excess calories; I35.0 Nonrheumatic aortic (valve) stenosis; I11.0 Hypertensive heart disease with heart failure; I73.9 Peripheral vascular disease, unspecified; I25.10 Atherosclerotic heart disease of native coronary artery without angina pectoris; Z96.1 Presence of intraocular lens; E78.00 Pure hypercholesterolemia, unspecified; T38.0X5A Adverse effect of glucocorticoids and synthetic analogues, initial encounter; Y92.89 Other specified places as the place of occurrence of the external cause; I25.2 Old myocardial infarction; Z95.1 Presence of aortocoronary bypass graft; Z87.891 Personal history of nicotine dependence; Z86.73 Personal history of transient ischemic attack (TIA), and cerebral infarction without residual deficits; Z98.42 Cataract extraction status, left eye; Z79.82 Long term (current) use of aspirin; Z79.899 Other long term (current) drug therapy; Z88.0 Allergy status to penicillin; Z88.1 Allergy status to other antibiotic agents; Z88.8 Allergy status to other drugs, medicaments and biological substances; Z82.49 Family history of ischemic heart disease and other diseases of the circulatory system
CPT/HCPCS: 10081

== ENCOUNTER 2018-08-24 18:12 | Emergency (ER) | payer OTHER ==
[~2018-08-24] VITALS: Ht 157.5 cm; Wt 111.1 kg
[~2018-08-24 18:12] MED LIST changes: +CEFDINIR300 MG PO; +CRESTOR20 MG PO; +MUCINEX1200 MG PO; +PREDNISONE 5 MG5 M1 PO; +UNICOMPLEX M TA1 TA1 PO
[2018-08-24 19:41] LABS: ABSOLUTE NEUTROPHILS 10.3 thou/uL (1.4-8.2); BASOPHILS 0.5 % (0.0-2.0); HEMOGLOBIN 13.4 gm/dL (12.0-15.0); LYMPHOCYTES 20.5 % (24.0-44.0); MCH 28.1 pg (26.0-34.0); MCHC 33.6 g/dL (28.0-37.0); MCV 83.7 fL (80.0-100.0); PLATELET COUNT 253 thou/uL (150-400); RBC 4.78 mil/uL (4.20-5.00); RDW 14.5 % (10.5-14.5); WBC 15.3 thou/uL (4.0-11.0)
[2018-08-24 19:51] LABS: CALCIUM 9.2 mg/dL (8.5-10.1); CREATININE 1.4 mg/dL (0.6-1.0); POTASSIUM 3.5 mmol/L (3.5-5.1)
[2018-08-24 19:58] LABS: ALBUMIN 3.1 g/dL (3.4-5.0); DIRECT BILIRUBIN 0.2 mg/dL (<0.1-0.3); TOTAL BILIRUBIN 0.7 mg/dL (<0.1-1.0); TOTAL PROTEIN 6.7 g/dL (6.4-8.2)
[2018-08-24] MEDS ORDERED: NORVASC5 MG PO (21:05)
[2018-08-24] MEDS ORDERED: VITAMIN D-32000 UNIT PO (21:07)
[2018-08-24] MEDS ORDERED: PROBIOTIC1 EAC1 PO (21:07)
[2018-08-24 23:33] LABS: URINE BILIRUBIN NEGATIVE (Negative); URINE BLOOD 3+ (Negative); URINE CLARITY CLOUDY; URINE COLOR YELLOW; URINE GLUCOSE-RANDOM* NEGATIVE (Negative); URINE KETONES NEGATIVE (Negative); URINE LEUKOCYTES-REFLEX 3+ (Negative); URINE NITRITE-REFLEX NEGATIVE (Negative); URINE PROTEIN (DIPSTICK) 1+ (Negative); URINE UROBILINOGEN 0.2 E.U./dl (0.2-1.0)
[2018-08-24 23:45] LABS: CRYSTALS None Seen /LPF (None Seen); MUCUS 0-3 Light strn/LPF (None Seen); SQUAMOUS 0-3 Few /LPF (0-3); URINE RBC >20 Many /HPF (0-2); URINE WBC-REFLEX >25 Many /HPF (0-5); WBC CLUMPS Few (None Seen)
[2018-08-24] MEDS ORDERED: KEFLEX500 M1 PO (23:55)
[2018-08-25 00:10] VITALS: BP 162/46
== END 2018-08-25 00:11 | disposition home or self-care (01) ==
LOC: ER 18:12
PROVIDERS: Emergency Medicine
DX: N39.0 Urinary tract infection, site not specified (principal); R19.7 Diarrhea, unspecified; F41.9 Anxiety disorder, unspecified; I10 Essential (primary) hypertension; E78.00 Pure hypercholesterolemia, unspecified; K21.9 Gastro-esophageal reflux disease without esophagitis; Z87.891 Personal history of nicotine dependence; Z88.1 Allergy status to other antibiotic agents; Z88.0 Allergy status to penicillin; Z88.5 Allergy status to narcotic agent; Z95.1 Presence of aortocoronary bypass graft